=== PATIENT | male | born 1960 | race Caucasian/White ===

== ENCOUNTER 2023-01-07 11:45 | Inpatient (IN) | payer OTHER, SELFPAY ==
[2023-01-02 08:37] VITALS: BMI 28.1
[2023-01-07] VITALS (7 sets, daily range): BP systolic 101–133; BP diastolic 60–82; PULSE 66–89; RESP 10–17; TEMP 36.1–36.5; O2SAT 67–99; BMI 28.1
--- NOTE | 2023-01-07 06:00 | DI.RAD.S_ITS ---
PROCEDURE: XR SHOULDER RT 1V INDICATIONS: RTSA TECHNIQUE: 1 views of the shoulder were acquired. COMPARISON: None. FINDINGS: Bones: Right shoulder arthroplasty, which appears within normal limits. Soft tissues: No suspicious soft tissue calcifications. Expected postoperative changes overlying the surgical bed. IMPRESSION: Right shoulder arthroplasty, without hardware complication Dictated by: Tejas Rucker M.D. on 01/07/2023 at 16:56 Approved by: Tejas Rucker M.D. on 01/07/2023 at 16:57
[2023-01-07] MEDS: LACTATED RINGERS 1,000 ML 42 ML IV (12:50)
--- NOTE | 2023-01-07 13:14 | PM.PREOP ---
Pre-operative Note Interval Note History & Physical reviewed/Exam performed by Physician: Yes Changes to H&P: No
[2023-01-07] MEDS: CELECOXIB 200 MG CAPSULE PO (13:35)
[2023-01-07] MEDS: ACETAMINOPHEN 325 MG TABLET 975 MG PO (13:35)
--- NOTE | 2023-01-07 13:56 | SUR.PREOP ---
Block start time [1342] . Monitoring initiated and maintained throughout procedure. Oxygen and medications given per anesthesiologist instructions. Patient remained stable throughout procedure, no adverse reactions noted. Block end time 1348 ].
[2023-01-07] MEDS: CEFAZOLIN 2 GM/100 ML PREMIX 100 ML IV (13:59)
[2023-01-07] MEDS: TRANEXAMIC ACID 1,000 MG VIAL 1000 MG INJ ×2 (14:05→15:39)
--- NOTE | 2023-01-07 14:32 | SUR.OPER ---
Beach chair with Maquet shoulder positioner. Lower body on padded OR bed. Head in foam padded head cradle, secured with straps. Non-operative arm secured <90 degrees abduction. Pillow under knees. Safety belt at thigh. Cloth tape over blanket over lower legs. Right arm in control of surgeon.
[2023-01-07] MEDS: BUPIVACAINE 0.25% (PF) 10 ML, EPINEPHrine 0.05 MG INJ (15:02)
--- NOTE | 2023-01-07 15:46 | P.OP_ITS ---
Operative Date/Time/Diagnoses Date of procedure: 01/07/23 Time of procedure: 15:46 Pre-op diagnosis: Right shoulder rotator cuff arthropathy Post-op diagnosis: same Procedure & Clinicians Procedure: Right reverse total shoulder arthroplasty Same procedure as scheduled: Yes Indications: Indications: This is a 62-year-old male who has right shoulder rotator cuff arthropathy. Symptoms have been present for years, insidious onset. Patient has failed conservative therapy including injections, physical therapy, anti- inflammatories and activity modification. After extensive discussion in clinic, they wished to go forward with surgery. Risks and benefits were described including the risk of infection, bleeding, damage to internal structures including nerves. We also discussed the risk of failure of surgery and the need for revision surgery as well as the risk of anesthesia. The patient expressed understanding with these risks and wished to go forward with surgery. Surgeon: Dex Slater [employer] And [employer] Fleshing Machine Operator: Lorene Keller Anesthesia Type: General Operative Notes Findings: Findings: Osteoarthritis of the glenoid and humeral head as well as a defient rotator cuff as noted on preoperative imaging and under direct visualization Closure Type: primary Specimen(s): none sent Prosthetic devices, grafts, tissues, transplants, or devices: Tornier implants Base plate: 29 mm, +3 mm offset, 4 peripheral screws Glenosphere: 39 mm Stem: Perform 3 Poly: +3 concentric Estimated Blood Loss (mL): 50 Procedure in detail: Procedure: Patient was seen in the preoperative holding unit. The correct right shoulder was identified and marked with my initials. Again we discussed the risks and benefits of surgery and they wished to go forward with surgery. The patient was brought back to the operating room and placed supine on the operating table. Smooth endotracheal intubation was performed by anesthesia. All prominences were padded and they were placed into the beach chair position. Intravenous antibiotics were given. The right shoulder was then prepped with the standard sterile preparation and draping. A time-out was then performed in my initials were again identified on the correct shoulder. 1 g of IV tranexamic acid was given. A standard deltopectoral incision was made. Skin flaps were made. The cephalic vein was identified and retracted laterally. This was protected throughout the remainder of the case. Sharp dissection was made along the deltoid, subacromial and subcoracoid space to release adhesions. The conjoined tendon was identified and the axillary nerve was palpated and continuous using the tug test. It was protected throughout the remainder of the case. A brown retractor was placed underneath the deltoid muscle and a darach retractor underneath the conjoint tendon. The anterior circumflex artery and associated veins on the lower border of the subscapularis were identified and tied off using 0-Vicryl. The biceps tendon was identified in the bicipital groove. This was released from its sheath, and taken from its origin on the glenoid and tied into the pectoralis tendon for a solid tenodesis. We then began a subscapularis peel. The subscapularis was tagged with an Ethibond suture. A 360 degree circumferential release of the subscapularis was performed with protection of the axillary nerve. The coracohumeral ligament was released at the base of the coracoid. The coracoacromial ligament was left intact. The shoulder was then dislocated. Osteophytes were removed using combination of rongeur and osteotome. The rotator cuff was noted to be insufficient. An intramedullary guide was used set at version of 30?. Using an oscillating saw a conservative humeral head cut was made. Impaction reamers were reamed up to a size 3 stem with a built-in angle 135?. A neck protector was placed. Attention was then turned to the glenoid. After retracting the humeral head posteriorly a circumferential release was performed of the capsule with protection of the axillary nerve. The labrum was then released starting at the biceps anchor and going around the rim a small amount of triceps was released from the inferior glenoid. A center guide pin was then placed using the guide, followed by Reamer. After adequate cartilage was removed the center drill hole was drilled and measured. The base plate was then implanted and screwed into place. The superior and inferior drill hole was drilled and filled in a nonlocking fashion, followed by the inferior and anterior holes in locking fashion A 39 glenosphere was then selected and screwed into place onto the base plate. Turning back to the humerus, the humeral head was delivered and trialed with a size 3 concentric polyethylene. The arm was taken through range of motion and this was felt to be stable. The trial was then removed and a dilute Betadine wash was then performed with 1 L of sterile saline. The final stem was then impacted into the humerus. The shoulder was then reduced and again brought through range of motion and was felt to be stable. The subscapularis was not repairable. The deltopectoral interval was then closed with #2 Ethibond. The skin was closed with 2-0 PDS and rommel followed by Aquacel dressing. Patient was awoken from anesthesia and brought back to the postoperative recovery unit without issue. They were placed into a sling. Assisting participation: This operation could not have been safely performed (without compromising the technical results or length of the procedure) without the assistance of a skilled surgical nurse practitioner. The surgical nurse practitioner was medically necessary for proper positioning, retraction and manipulation of instruments, proper exposure, graft prep, and manipulation of tissue. Complications: none Post-operative Condition: stable Disposition: PACU Plan for aftercare: Postoperative instructions: Sling to remain on for 6 weeks. No external rotation past neutral for 6 weeks. Okay for him to come off her shower. Okay to shower over the Aquacel dressing. If any water gets underneath the dressing, remove the dressing. First postoperative visit in 2 weeks.
== END 2023-01-07 17:30 | disposition home or self-care (01) | DRG 483 ==
PROVIDERS: Admitting Provider Orthopaedic Surgery; PCP Internal Medicine; Referring Provider Orthopaedic Surgery; Visit Provider Orthopaedic Surgery
PROC: 0RRJ00Z Replacement of Right Shoulder Joint with Reverse Ball and Socket Synthetic Substitute, Open Approach (ICD-10-PCS; CPT 23472; principal; 2023-01-07 13:15)
DX: M19.011 Primary osteoarthritis, right shoulder (principal); Z20.822 Contact with and (suspected) exposure to COVID-19
CPT/HCPCS: 64450; 73020; C1776; J0171; J0690; J1100; J2250; J2405; J2704; J3010